=== PATIENT | male | born 1980 | race Caucasian/White ===

== ENCOUNTER 2019-12-14 00:30 | Emergency (ER) | payer OTHER ==
[~2019-12-14] VITALS: Ht 170.2 cm; Wt 67.1 kg
[2019-12-14 01:40] LABS: ABSOLUTE NEUTROPHILS 4.5 thou/uL (1.4-8.2); BASOPHILS 0.6 % (0.0-2.0); EOSINOPHILS 1.2 % (0.0-3.0); HEMATOCRIT 39.8 % (42.0-52.0); HEMOGLOBIN 13.7 gm/dL (14.0-18.0); MCH 30.8 pg (26.0-34.0); MCHC 34.5 g/dL (28.0-37.0); MCV 89.4 fL (80.0-100.0); MONOCYTES 6.7 % (1.0-8.0); PLATELET COUNT 209 thou/uL (150-400); POLYS 63.5 % (36.0-66.0); RBC 4.45 mil/uL (4.50-6.00); WBC 7.1 thou/uL (4.0-11.0)
[2019-12-14 01:45] LABS: ANION GAP 10 mmol/L (7-16); BUN 10 mg/dL (7-18); CALCIUM 8.7 mg/dL (8.5-10.1); CHLORIDE 104 mmol/L (98-107); CO2 27 mmol/L (21-32); CREATININE 0.9 mg/dL (0.7-1.3); GLUCOSE 98 mg/dL (74-106); SODIUM 141 mmol/L (136-145)
[2019-12-14 01:47] LABS: AMP/METHAMP Negative (Negative); BARBITURATES Negative (Negative); BENZODIAZEPINES Negative (Negative); COCAINE Negative (Negative); METHADONE Negative (Negative); OPIATES Negative (Negative); PCP Negative (Negative)
[2019-12-14 01:57] LABS: MAGNESIUM 2.1 mg/dL (1.8-2.4); SGOT 22 U/L (15-37); SGPT 28 U/L (30-65); TOTAL BILIRUBIN 0.3 mg/dL (0.2-1.0); TOTAL PROTEIN 7.1 g/dL (6.4-8.2); TROPONIN-I <0.06 ng/mL (<0.06)
[2019-12-14 02:21] VITALS: BP 106/82
--- NOTE | 2019-12-15 08:56 | EKG ---
[facility] [place] [address] ELECTROCARDIOGRAM REPORT Name: BRIA BERMUDEZ Room #: DEP [facility]#: [id number] Admission: 12/14/19 Attend Phys: Discharge: 12/14/19 Date of : 78 Report #: [id number] THIS REPORT FOR: cc: Devaughn Morton MD, James MD Lundgren,Vitor Owusu MD [facility] ~ THIS REPORT FOR: //name// [facility] ED Test Date: 2019-12-14 Test Time: 00:47:11 Pat Name: BRIA BERMUDEZ Department: Room: Gender: Vehicle And Equipment [employer]er: FRANCISCO JAVIER : 1980 Requested By: Thierry Pierce Order Number: [id number] MD: Vitor العلي Measurements Intervals Leslie Rate: 55 P: 77 IL: 156 QRS: 21 QRSD: 103 T: 52 QT: 416 QTc: 398 Interpretive Statements Sinus rhythm RSR' in V1 or V2, right VCD ST elev, probable normal early repol pattern No previous ECG available for comparison Electronically Signed On 12-15-2019 8:55:59 CDT by Vitor العلي [email or web address] <ELECTRONICALLY SIGNED> By: Vitor العلي MD, [facility] 12/15/19 0855 [id number] 0047 Vitor العلي MD, [facility] /EPI
== END 2019-12-14 02:24 | disposition home or self-care (01) ==
LOC: ER 00:30
PROVIDERS: Emergency Medicine
DX: R00.2 Palpitations (principal); R06.02 Shortness of breath; Z88.5 Allergy status to narcotic agent